=== PATIENT | female | born 1945 | race Caucasian/White ===

== ENCOUNTER → 2019-02-27 14:52 | Outpatient (CLI) | payer MEDICARE, OTHER, SELFPAY ==
--- NOTE | 2019-02-27 14:56 | DI.MG.S_ITS ---
BILATERAL DIGITAL SCREENING MAMMOGRAM 3D/2D WITH CAD: 02/27/2019 CLINICAL: Routine screening. Family history of breast cancer. Comparison is made to exams dated: 02/22/2014 mammogram and 02/16/2014 mammogram - [facility]. There are scattered fibroglandular elements in both breasts. Current study was also evaluated with a Computer Aided Detection (CAD) system. No significant masses, calcifications, or other findings are seen in either breast. There has been no significant interval change. IMPRESSION: NEGATIVE There is no mammographic evidence of malignancy. A 1 year screening mammogram is recommended. This exam was interpreted at Station ID: [id number]. NOTE: For mammograms, a report in lay terms will be sent to the patient. Approximately 15% of breast malignancies will not be visualized mammographically. In the management of a palpable breast mass, a negative mammogram must not discourage biopsy of a clinically suspicious lesion. Electronically Signed By: Lorene mobley/sylvie:02/27/2019 16:53:14 letter sent: Normal Exam ACR BI-RADS Category 1: Negative 3341F
== END ==
PROVIDERS: PCP Physician Assistant; Visit Provider Physician Assistant
DX: Z12.39 Encounter for other screening for malignant neoplasm of breast (principal); Z78.0 Asymptomatic menopausal state; E55.9 Vitamin D deficiency, unspecified
CPT/HCPCS: 77063; 77067; 77080

== ENCOUNTER → 2020-03-05 13:26 | Outpatient (CLI) | payer MEDICARE, OTHER, SELFPAY ==
--- NOTE | 2020-03-05 13:42 | DI.MG.S_ITS ---
Patient Name: CLEVE ALEGRIA date: 1945 Sex: F Attending Physician: Chay Indications: Date: 03/05/2020 13:43 At the request of: LEONARDO ROY Procedure: MM screening mammo BI BILATERAL DIGITAL SCREENING MAMMOGRAM 3D/2D WITH CAD: 03/05/2020 CLINICAL: Routine screening. Family history of breast cancer. Comparison is made to exams dated: 02/27/2019 mammogram, 02/22/2014 mammogram, and 02/16/2014 mammogram - [facility]. There are scattered fibroglandular elements in both breasts. Current study was also evaluated with a Computer Aided Detection (CAD) system. No significant masses, calcifications, or other findings are seen in either breast. There has been no significant interval change. IMPRESSION: NEGATIVE There is no mammographic evidence of malignancy. A 1 year screening mammogram is recommended. This exam was interpreted at Station ID: [id number]. NOTE: For mammograms, a report in lay terms will be sent to the patient. Approximately 15% of breast malignancies will not be visualized mammographically. In the management of a palpable breast mass, a negative mammogram must not discourage biopsy of a clinically suspicious lesion. Electronically Signed By: Bobby pierre/sylvie:03/07/2020 09:15:14 letter sent: Normal Exam ACR BI-RADS Category 1: Negative 3341F
== END ==
PROVIDERS: PCP Registered Nurse Diabetes Educator; Referring Provider Registered Nurse Diabetes Educator; Visit Provider Registered Nurse Diabetes Educator
DX: Z12.31 Encounter for screening mammogram for malignant neoplasm of breast (principal); Z80.3 Family history of malignant neoplasm of breast
CPT/HCPCS: 77063; 77067

== ENCOUNTER → 2020-04-07 15:55 | Outpatient (CLI) | payer MEDICARE, OTHER, SELFPAY ==
[2020-04-07 16:31] LABS: Add Manual Diff / Slide Review NO; Basophils Absolute Auto 0 /uL (0-100); Basophils Percent Auto 0.3 % (0-2); Eosinophils Absolute Auto 200 /uL (0-450); Eosinophils Percent Auto 1.4 % (2-4); Hematocrit 37.8 % (36-46); Hemoglobin 12.5 g/dL (12.0-16.0); Lymphocytes Absolute Auto 1500 /uL (1100-4500); Lymphocytes Percent Auto 11.7 % (25-40); Mean Corpuscular Hemoglobin 28.5 PG (26-34); Mean Corpuscular Volume 86.4 fL (80-100); Monocytes Absolute Auto 900 /uL (0-900); Monocytes Percent Auto 7.4 % (3-14); Neutrophils Absolute Auto 10000 /uL (1500-7000); Neutrophils Percent Auto 79.2 % (50-75); Platelet Count 228 X10^3/uL (150-400); Red Blood Cell Count 4.38 X10^6/uL (4.0-5.2); Red Cell Distribution Width 13.2 % (11.6-14.8); White Blood Cell Count 12.7 X10^3/uL (4.5-11.0)
[2020-04-07 17:33] LABS: Alanine Aminotransferase 36 IU/L (<35); Albumin 4.2 g/dL (3.5-5.0); Albumin Globulin Ratio 1.3 (1.0-2.8); Alkaline Phosphatase 106 U/L (38-126); Aspartate Aminotransferase 27 IU/L (14-36); BUN Creatinine Ratio 21.6 (6-22); Bilirubin Total 0.4 mg/dL (0.2-1.3); Blood Urea Nitrogen 21 mg/dL (7-17); Calcium 9.4 mg/dL (8.4-10.2); Carbon Dioxide 30 mmol/L (22-32); Chloride 102 mmol/L (98-107); Estimated Glomerular Filt Rate 55.8 mL/min (>60); Globulin 3.3 g/dL (1.7-4.1); Glucose 101 mg/dL (80-110); HEMOLYSIS < 15 (0-50); Potassium 3.9 mmol/L (3.4-5.1); Sodium 138 mmol/L (137-145); Total Protein 7.5 g/dL (6.3-8.2)
[2020-04-07 17:45] LABS: Erythrocyte Sedimentation Rate 73 MM/HR (0-20)
[2020-04-07 18:02] LABS: Thyroid Stimulating Hormone 1.77 uIU/mL (0.47-4.68)
== END ==
PROVIDERS: Nurse Practitioner Family; PCP Registered Nurse Diabetes Educator; Referring Provider Registered Nurse Diabetes Educator; Visit Provider Registered Nurse Diabetes Educator
DX: K57.90 Diverticulosis of intestine, part unspecified, without perforation or abscess without bleeding (principal); R10.2 Pelvic and perineal pain; R10.9 Unspecified abdominal pain; Z87.19 Personal history of other diseases of the digestive system; E03.9 Hypothyroidism, unspecified
CPT/HCPCS: 36415; 80053; 84443; 85025; 85651; 86140

== ENCOUNTER → 2020-04-08 08:41 | Outpatient (CLI) | payer MEDICARE, OTHER, SELFPAY ==
--- NOTE | 2020-04-08 08:52 | DI.CT.S_ITS ---
PROCEDURE: CT ABDOMEN PELVIS W CON INDICATIONS: abd/pelvic pain TECHNIQUE: After the administration of intravenous contrast, 5 mm thick sections acquired from the diaphragm to the symphysis. 5 mm coronal and sagittal reformats were acquired. For radiation dose reduction, the following was used: automated exposure control, adjustment of mA and/or kV according to patient size. COMPARISON: None. FINDINGS: Image quality: Excellent. ABDOMEN: Lung bases: Lung bases are clear. Heart size is normal. There is a small hiatal hernia. There is concentric thickening in the distal esophagus at the gastroesophageal junction. Solid organs: There are several low-density nodules in the liver, most likely hepatic cysts. Liver is normal in size and enhancement. Gallbladder is normal. Biliary system is non dilated. Pancreas enhances normally. Spleen is normal in size and enhancement. No adrenal nodules. Kidneys demonstrate normal size and enhancement. There is moderate left hydronephrosis. A 5 mm obstructing stone is seen in the proximal left ureter. A 7 mm fat containing nodule in the right renal cortex is consistent with a angiomyolipoma. Peritoneum and bowel: There are innumerable colonic diverticula. There is focal thickening and stranding in sigmoid colon consistent with acute diverticulitis. A small amount of free fluid is present. No free air. Nodes and vessels: No retroperitoneal or mesenteric adenopathy by size criteria. Aorta and inferior vena cava are normal in size. Miscellaneous: There is a small fat containing umbilical hernia. PELVIS: Genitourinary: Bladder wall appears thickened. Miscellaneous: No inguinal hernias or adenopathy. Bones: No suspicious bony lesions. No vertebral body compression fractures. IMPRESSION: 1. Extensive colonic diverticulosis. There is short segmental thickening and stranding involving the sigmoid colon consistent with acute diverticulitis. A follow-up CT or endoscopic exam is suggested after adequate treatment because colon cancer could have a similar imaging appearance. 2. Moderate left hydronephrosis secondary to a 5 mm obstructing stone in the proximal left ureter. 3. Small hiatal hernia. There is mild concentric thickening of the distal esophagus. Routine esophagram or upper endoscopy is suggested for follow-up. 4. There is a small amount of free fluid. No free air. 5. 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 6. Bladder wall appears thickened. Recommend clinical correlation for cystitis. Dictated by: Ramu Merchant M.D. on 04/08/2020 at 10:39 Approved by: Ramu Merchant M.D. on 04/08/2020 at 10:50
[2020-04-08 16:50] LABS: Appearance Urine UA CLEAR; Bilirubin Urine UA NEGATIVE (NEGATIVE); Color Urine UA YELLOW; Glucose Urine UA NEGATIVE (Negative); Ketones Urine UA NEGATIVE (NEGATIVE); Leukocyte Esterase Urine UA 1+ (NEGATIVE); Nitrite Urine UA NEGATIVE (Negative); Occult Blood Urine UA NEGATIVE (Negative); Protein Urine UA NEGATIVE (Negative); Specific Gravity Urine UA <=1.005 (1.000-1.035); Urobilinogen Urine UA 0.2 E.U./dL (0.2)
[2020-04-08 17:04] LABS: RBC Urine 0-1/HPF (0-5/HPF); WBC Urine 5-10/HPF (0-5/HPF)
[2020-04-08 17:05] LABS: Bacteria Urine Few (2-10); Culture Indicated Urine Specimen Cultured
== END ==
PROVIDERS: PCP Registered Nurse Diabetes Educator; Referring Provider Nurse Practitioner Family; Visit Provider Nurse Practitioner Family
DX: R10.2 Pelvic and perineal pain (principal); R10.9 Unspecified abdominal pain; K57.90 Diverticulosis of intestine, part unspecified, without perforation or abscess without bleeding; R39.9 Unspecified symptoms and signs involving the genitourinary system; K44.9 Diaphragmatic hernia without obstruction or gangrene; N13.2 Hydronephrosis with renal and ureteral calculous obstruction; D17.71 Benign lipomatous neoplasm of kidney; Z87.19 Personal history of other diseases of the digestive system
CPT/HCPCS: 74177; 81001; 87086; Q9967

== ENCOUNTER 2020-04-13 10:20 | Emergency (ER) | payer MEDICARE, OTHER, SELFPAY ==
[2020-04-13] VITALS (8 sets, daily range): BP systolic 138–175; BP diastolic 60–79; PULSE 66–94; RESP 18; TEMP 36.8; O2SAT 92–99; BMI 27.6
[2020-04-13 10:43] LABS: Add Manual Diff / Slide Review NO; Basophils Absolute Auto 100 /uL (0-100); Basophils Percent Auto 0.7 % (0-2); Eosinophils Absolute Auto 100 /uL (0-450); Eosinophils Percent Auto 1.8 % (2-4); Hemoglobin 13.2 g/dL (12.0-16.0); Lymphocytes Absolute Auto 1100 /uL (1100-4500); Lymphocytes Percent Auto 14.7 % (25-40); Mean Corpuscular HGB Conc 33.7 % (30-36); Mean Corpuscular Volume 85.9 fL (80-100); Monocytes Absolute Auto 500 /uL (0-900); Neutrophils Absolute Auto 5900 /uL (1500-7000); Neutrophils Percent Auto 75.8 % (50-75); Platelet Count 246 X10^3/uL (150-400); Red Blood Cell Count 4.54 X10^6/uL (4.0-5.2); Red Cell Distribution Width 13.5 % (11.6-14.8); White Blood Cell Count 7.8 X10^3/uL (4.5-11.0)
[2020-04-13 10:54] LABS: BUN Creatinine Ratio 12.1 (6-22); Blood Urea Nitrogen 13 mg/dL (7-17); Calcium 9.3 mg/dL (8.4-10.2); Carbon Dioxide 26 mmol/L (22-32); Chloride 104 mmol/L (98-107); Estimated Glomerular Filt Rate 49.9 mL/min (>60); Glucose 92 mg/dL (80-110); HEMOLYSIS < 15 (0-50); Potassium 3.7 mmol/L (3.4-5.1); Sodium 139 mmol/L (137-145)
--- NOTE | 2020-04-13 11:00 | ED.GIBLEED ---
HPI - GI Bleed General Chief complaint: GI Bleed Stated complaint: left sided kidney stone/diverticulosis x7 days Time Seen by Provider: 04/13/20 10:31 Source: patient Mode of arrival: Ambulatory Limitations: no limitations History of Present Illness HPI Narrative: Patient is a 74-year-old female. Several days ago was seen by her primary doctor for left-sided discomfort. Had a CT scan performed which showed a left-sided ureteral stone and also sigmoid diverticulitis. She was placed on Cipro and Flagyl. She has had kidney stones in the past. She states that the pain that she was in several days ago has resolved however this morning she had bright red blood per rectum and also passage of clots. No urinary symptoms. No fevers. Was told to come into the emergency department by her primary provider. Related Data Home Medications Medication Instructions Recorded Confirmed OMEPRAZOLE 20 mg PO PRN #30 07/11/12 04/12/20 Previous Rx's Medication Instructions Recorded sertraline 100 mg tablet 100 mg PO Q DAY #90 tab 02/16/20 ergocalciferol (vitamin D2) 1,250 1,250 mcg PO QWEEK #12 cap 02/28/20 mcg (50,000 unit) capsule levothyroxine 88 mcg tablet 88 mcg PO DAILY #90 tab 02/28/20 pravastatin 10 mg tablet 10 mg PO BEDTIME #90 tab 03/23/20 ciprofloxacin HCl 500 mg tablet 500 mg PO BID #20 tab 04/08/20 tamsulosin 0.4 mg capsule 0.4 mg PO DAILY #60 cap 04/08/20 metronidazole 500 mg tablet 500 mg PO Q8H #15 tab 04/13/20 Allergies Allergy/AdvReac Type Severity Reaction Status Date / Time No Known Drug Allergies Allergy Verified 04/12/20 14:43 Review of Systems Constitutional Constitutional: Denies fever(s) Cardiovascular Cardiovascular: Denies chest pain and Denies dyspnea Respiratory Respiratory: Denies dyspnea Gastrointestinal Gastrointestinal: Denies abdominal pain, Denies melena, Reports hematochezia, Reports nausea and Denies vomiting Genitourinary Genitourinary: Denies dysuria Genitourinary: Denies dysuria Musculoskeletal Musculoskeletal: Denies arthralgias and Denies myalgias Integumentary/Breasts Skin/Breast: Denies rash Neurologic Neurologic: Denies behavioral changes Psychiatric Psychiatric: Denies behavioral changes Hematologic/Lymphatic Hematologic/Lymphatic: Denies easy bleeding and Denies easy bruising Allergic/Immunologic Allergic/Immunologic: Denies urticaria Patient History Medical History Abdominal pain (Acute) Diverticulitis (Acute 04/07/20) Diverticulosis (Acute) History of ulcerative colitis (Acute) Hypothyroidism (Acute) Kidney stone on left side (Acute 04/2020) Pelvic pain (Acute) Social History Smoking Status: Former smoker Tobacco: How many years used: 15 second hand exposure: No alcohol intake: current substance use type: does not use Smoking Status: Former smoker alcohol intake frequency: holidays/special occasions only Substance Use Type: does not use Exam Initial Vital Signs Initial Vital Signs: Vital Signs Pulse Rate 91 H 04/13/20 10:26 Const General: cooperative and comfortable Limitations: mental status not altered HENMT Head: normal to inspection and normocephalic Resp Effort & Inspection: normal respiratory effort Auscultation: clear to auscultation bilaterally Cardio Rate: regular rate Rhythm: regular rhythm GI Inspection: non-distended Palpation: soft, No firm and No tender Back/Spine/Pelvis Back: No CVA tenderness Skin Lesions: no lesions Rashes: no rashes Neuro General: patient alert, patient awake and patient oriented x3 Extrem General: capillary refill normal Psych Appearance: grossly normal and well kempt Course Orders Ordered: ED Orders 04/13/20 10:30 Basic Metabolic Panel Stat Complete Blood Count AUTO DIFF Stat 04/13/20 11:30 Urine Culture Stat Urine Microscopic Stat Vital Signs Vital signs: Vital Signs - 8 hr 04/13/20 10:26 04/13/20 10:27 04/13/20 10:30 Temperature 98.3 F Pulse Rate 91 H 92 H 71 Respiratory Rate 18 Blood Pressure 175/79 H 165/67 H Pulse Oximetry 99 99 04/13/20 11:00 04/13/20 11:30 04/13/20 11:31 Temperature Pulse Rate 70 94 H 74 Respiratory Rate Blood Pressure 145/65 H 138/60 Pulse Oximetry 97 92 96 04/13/20 12:00 04/13/20 12:30 Temperature Pulse Rate 66 74 Respiratory Rate Blood Pressure 152/65 H 149/65 H Pulse Oximetry 98 96 MDM - GI Bleed Medical Records Attestation: I reviewed the patient's medical records. Lab Data Attestation: I reviewed the patient's lab results. Result diagrams: 04/13/20 10:30 04/13/20 10:30 Labs: Lab Results 04/13/20 04/13/20 04/13/20 Range/Units 10:30 10:30 11:30 WBC 7.8 (4.5-11.0) X10^3/uL RBC 4.54 (4.0-5.2) X10^6/uL Hgb 13.2 (12.0-16.0) g/dL Hct 39.0 (36-46) % MCV 85.9 (80-100) fL MCH 29.0 (26-34) PG MCHC 33.7 (30-36) % RDW 13.5 (11.6-14.8) % Plt Count 246 (150-400) X10^3/uL Neut % (Auto) 75.8 H (50-75) % Lymph % (Auto) 14.7 L (25-40) % [place] % (Auto) 7.0 (3-14) % Eos % (Auto) 1.8 L (2-4) % Baso % (Auto) 0.7 (0-2) % Neut # (Auto) 5900 (4229-1600) /uL Lymph # (Auto) 1100 (9816-1904) /uL [place] # (Auto) 500 (0-900) /uL Eos # (Auto) 100 (0-450) /uL Baso # (Auto) 100 (0-100) /uL Sodium 139 (137-145) mmol/L Potassium 3.7 (3.4-5.1) mmol/L Chloride 104 (98-107) mmol/L Carbon Dioxide 26 (22-32) mmol/L BUN 13 (7-17) mg/dL Creatinine 1.07 H (0.52-1.04) mg/dL Estimated GFR 49.9 L (>60) mL/min BUN/Creatinine Ratio 12.1 (6-22) Glucose 92 (80-110) mg/dL Calcium 9.3 (8.4-10.2) mg/dL Urine RBC 0-1/hpf (0-5/HPF) Urine WBC 10-30/hpf H (0-5/HPF) Ur Squamous Epith Cells 1-5 /hpf (0-5/HPF) Calcium Oxalate Crystal Occasional H Urine Bacteria Many (>30) H (None) Hyaline Casts 5-10/lpf (None) Ur Culture Indicated? Specimen cultured Urine Dip Bedside Urine Glucose Negative Bedside Urine Bilirubin - Negative Bedside Urine Ketone +/- 5 Urine Specific [place] 1.030 Bedside Urine Occult Blood - Negative Bedside Urine pH 5.5 Bedside Urine Protein +/- 15 Bedside Urine Urobilinogen - Negative Bedside Urine Nitrite - Negative Bedside Urine Leukocytes +/- 15 Esterase MDM Narrative Medical decision making narrative: Reviewed patient's CT scan from a couple days ago. She does have a proximal left-sided nephrolithiasis and also diverticulitis. She is currently on Cipro and Flagyl. She is tolerating this well. Her symptoms have resolved. She is not having any urinary symptoms. Her creatinine does have a slight increase however I do not have a comparison of this. Certainly not in renal failure or non emergent dialysis. Her urinalysis is somewhat concerning about a urinary tract infection which she is on Cipro in the should treat this. Patient has already had a discussion with her primary doctor about having a colonoscopy once her symptoms ever approved. I feel that we can hold on a repeat CT scan today. I feel we can hold on urologic consultation and surgical consultation. She was given strict return precautions and follow-up instructions. She expressed understanding and agreement. Discharge Plan Departure Patient Disposition: Home Clinical Impression: Diverticulitis, Kidney stone on left side, Rectal bleeding Discharge Date/Time: 04/13/20 12:54 Instructions: Diverticulitis Activity Restrictions/Additional Instructions: Continue all of your medications as directed. Contact your primary provider for follow-up. It is important that you follow-up after the resolution of your symptoms to have a colonoscopy. Return to the emergency department for any new or worsening symptoms Prescriptions: No Action OMEPRAZOLE 20 mg PO PRN Qty: 30 RF: 2 levothyroxine 88 mcg tablet 88 mcg PO DAILY Qty: 90 RF: 3 ergocalciferol (vitamin D2) 1,250 mcg (50,000 unit) capsule 1,250 mcg PO QWEEK Qty: 12 RF: 0 ciprofloxacin HCl 500 mg tablet 500 mg PO BID Qty: 20 RF: 0 tamsulosin [Flomax] 0.4 mg capsule 0.4 mg PO DAILY Qty: 60 RF: 0 pravastatin 10 mg tablet 10 mg PO BEDTIME Qty: 90 RF: 3 metronidazole 500 mg tablet 500 mg PO Q8H Qty: 15 RF: 0 sertraline [Zoloft] 100 mg tablet 100 mg PO Q DAY Qty: 90 RF: 3 Referrals: Raúl Cartwright ARNP [Primary Care Provider] -
--- NOTE | 2020-04-13 11:23 | PC.NURSE ---
Patient started on abx and medications for kidney stone on saturday. Patient dx with diverticulitis and kidney stone. Noticed some red stool saturday night attributed it to red jello continued to have loose stools and blood clots with BM. Patient reports some nausea, no vomiting. Has been on a clear liquid diet. Denies chest pain or SOB.
[2020-04-13 12:25] LABS: Bacteria Urine Many (>30); Hyaline Casts Urine 5-10/LPF; RBC Urine 0-1/HPF (0-5/HPF); Squamous Epithelial Cell Urine 1-5 /HPF (0-5/HPF); WBC Urine 10-30/HPF (0-5/HPF)
[2020-04-13 12:26] LABS: Calcium Oxalate Crystals Urine Occasional; Culture Indicated Urine Specimen Cultured
== END 2020-04-13 12:54 | disposition home or self-care (01) ==
PROVIDERS: Emergency Provider Emergency Medicine; PCP Registered Nurse Diabetes Educator
DX: K57.92 Diverticulitis of intestine, part unspecified, without perforation or abscess without bleeding (principal); N20.0 Calculus of kidney; K62.5 Hemorrhage of anus and rectum; R11.0 Nausea
CPT/HCPCS: 36415; 80048; 81003; 81015; 85025; 87086; 99283

== ENCOUNTER → 2020-04-25 11:33 | Outpatient (CLI) | payer MEDICARE, OTHER, SELFPAY ==
--- NOTE | 2020-04-25 11:37 | DI.RAD.S_ITS ---
PROCEDURE: XR KUB INDICATIONS: kidney stones TECHNIQUE: One view of the abdomen acquired. COMPARISON: None. FINDINGS: Surgical changes and devices: None. Bowel: There is increased stool throughout the abdomen consistent with constipation. No free air, pneumatosis, or portal venous gas. No calcifications are seen along the course of the kidneys or ureters. No pelvic phleboliths. Soft tissues: No suspicious abdominal calcifications. Visualized solid organ contours appear normal in size. Bones: No suspicious bony lesions. IMPRESSION: No acute plain film abnormality. No evidence of nephroureterolithiasis. Dictated by: Hemant Stone M.D. on 04/25/2020 at 12:52 Approved by: Hemant Stone M.D. on 04/25/2020 at 12:54
== END ==
PROVIDERS: PCP Registered Nurse Diabetes Educator; Referring Provider Specialist; Visit Provider Specialist
DX: N20.0 Calculus of kidney (principal)
CPT/HCPCS: 74018

== ENCOUNTER → 2020-05-10 10:54 | Outpatient (CLI) | payer MEDICARE, OTHER, SELFPAY ==
--- NOTE | 2020-05-10 11:03 | DI.CT.S_ITS ---
PROCEDURE: CT KIDNEY URETER BLADDER (KUB) INDICATIONS: ureteral calculus TECHNIQUE: Noncontrast 5 mm thick sections acquired from the diaphragms to the symphysis. 5 mm thick coronal and sagittal reformats were then performed. For radiation dose reduction, the following was used: automated exposure control, adjustment of mA and/or kV according to patient size. COMPARISON: [facility], CT, CT ABDOMEN PELVIS W CON, 04/08/2020, 9:55. FINDINGS: Image quality: Excellent. Lung bases: Visualized lung bases demonstrate mild bibasilar dependent atelectasis. Heart size is normal. Small hiatal hernia. Urinary system: Both kidneys are normal in size. No kidney stones. No hydronephrosis or perinephric fat stranding. Redemonstration of fat attenuation focus involving the right renal cortex consistent with an angiomyolipoma. Right ureter appears non-dilated throughout its expected course. Bladder wall thickness is normal; no calcified bladder stones. No nephroliths. There is a 5 mm proximal left ureteral stone with associated mild left hydronephrosis. This ureteral stone has not changed significantly in location. Remainder of the visualized left ureter is normal in course and caliber. Other solid organs: Liver is normal in size. Redemonstration of scattered hepatic hypodensities likely representing cysts versus hemangiomas. Gallbladder is unremarkable . Pancreas is normal in contours. Spleen is normal in size. No adrenal nodules. Peritoneum and bowel: Extensive scattered colonic diverticulosis with interval resolution of previously seen Karishma diverticular inflammation. Unenhanced bowel loops demonstrate normal wall thickness and caliber. No free fluid or air. Nodes and vessels: No retroperitoneal or mesenteric adenopathy by size criteria. Aorta and inferior vena cava are normal in caliber. Scattered atherosclerotic calcifications of the abdominal aorta and iliac vessels without aneurysmal dilatation. Abdominal wall: No ventral hernias. Pelvis: No free pelvic fluid. No inguinal hernias or adenopathy. Bones: No suspicious bony lesions. No acute vertebral body compression fractures. IMPRESSION: 1. Unchanged size and appearance as well as location of 5 mm proximal left ureteral stone with minimal left hydroureteronephrosis. 2. Extensive colonic diverticulosis with interval resolution of sigmoid colon diverticulitis. 3. Small hiatal hernia. 4. Stable 7 mm angiomyolipoma of the right kidney. Dictated by: Shahzad Chaudhry M.D. on 05/10/2020 at 16:01 Approved by: Shahzad Chaudhry M.D. on 05/10/2020 at 16:15
== END ==
PROVIDERS: PCP Registered Nurse Diabetes Educator; Referring Provider Registered Nurse Diabetes Educator; Visit Provider Specialist
DX: N20.1 Calculus of ureter (principal); K57.90 Diverticulosis of intestine, part unspecified, without perforation or abscess without bleeding; K44.9 Diaphragmatic hernia without obstruction or gangrene; D17.71 Benign lipomatous neoplasm of kidney
CPT/HCPCS: 74176

== ENCOUNTER → 2020-05-19 13:54 | Outpatient (CLI) | payer MEDICARE, OTHER, SELFPAY | PROVIDERS: PCP Registered Nurse Diabetes Educator; Visit Provider Specialist | DX: N39.0 Urinary tract infection, site not specified (principal); N20.1 Calculus of ureter | CPT/HCPCS: 81002; 87086; 99214 ==

== ENCOUNTER → 2020-05-23 08:58 | Outpatient (CLI) | payer MEDICARE, OTHER, SELFPAY ==
[2020-05-23 10:41] LABS: Blood Urea Nitrogen 22 mg/dL (7-17); Calcium 9.3 mg/dL (8.4-10.2); Carbon Dioxide 30 mmol/L (22-32); Chloride 105 mmol/L (98-107); Cholesterol 224 mg/dL (140-199); Estimated Glomerular Filt Rate > 60.0 mL/min (>60); Glucose 98 mg/dL (80-110); HDL Cholesterol 55 mg/dL (40-60); HEMOLYSIS < 15 (0-50); LDL Cholesterol Calculated 142 mg/dL (<100); Potassium 4.6 mmol/L (3.4-5.1); Sodium 139 mmol/L (137-145); Triglycerides 137 mg/dL (35-150)
[2020-05-23 10:53] LABS: Vitamin D 25 Hydroxy (D3) 42.6 ng/mL (30.0-100.0)
== END ==
PROVIDERS: PCP Registered Nurse Diabetes Educator; Referring Provider Registered Nurse Diabetes Educator; Visit Provider Registered Nurse Diabetes Educator
DX: E55.9 Vitamin D deficiency, unspecified (principal); E78.00 Pure hypercholesterolemia, unspecified; R94.4 Abnormal results of kidney function studies
CPT/HCPCS: 36415; 80048; 80061; 82306

== ENCOUNTER → 2020-05-25 14:52 | Outpatient (CLI) | payer MEDICARE, OTHER, SELFPAY ==
[2020-05-25 16:11] LABS: COVID19 -Nasal RAPID Negative (Negative)
== END ==
PROVIDERS: PCP Registered Nurse Diabetes Educator; Visit Provider Specialist
DX: Z11.59 Encounter for screening for other viral diseases (principal)
CPT/HCPCS: 87635

== ENCOUNTER 2020-05-27 08:12 | Day surgery (SDC) | payer MEDICARE, OTHER, SELFPAY ==
[2020-05-24 08:09] VITALS: BMI 27.1
[2020-05-27] VITALS (9 sets, daily range): BP systolic 126–148; BP diastolic 38–78; PULSE 61–80; RESP 12–18; TEMP 36.4–37; O2SAT 87–99; BMI 27.2
--- NOTE | 2020-05-27 | DI.RAD.S_ITS ---
PROCEDURE: XR ABDOMEN 1V INDICATIONS: LEFT STENT PLACEMENT TECHNIQUE: One view of the abdomen acquired. COMPARISON: None. FINDINGS: Proximal portion of left ureteral stent noted. Left ureteral stent projects over the expected region of the left renal pelvis. IMPRESSION: Status post placement of left ureteral stent. Dictated by: Leonor Morgan MD, PhD on 05/27/2020 at 14:09 Approved by: Leonor Morgan MD, PhD on 05/27/2020 at 14:10
--- NOTE | 2020-05-27 | DI.RAD.S_ITS ---
PROCEDURE: XR KUB INDICATIONS: Left ureteral calculus TECHNIQUE: One view of the abdomen acquired. COMPARISON: [facility], , XR KUB, 04/25/2020, 11:36. FINDINGS: Surgical changes and devices: None. Bowel: Bowel gas pattern is normal. Soft tissues: No suspicious abdominal calcifications. Visualized solid organ contours appear normal in size. Bones: Discogenic changes and facet arthropathy IMPRESSION: No radiographically visible urolithiasis identified. Dictated by: Delvis Bullock M.D. on 05/27/2020 at 11:09 Approved by: Delvis Bullock M.D. on 05/27/2020 at 11:16
[2020-05-27] MEDS: LACTATED RINGERS 1,000 ML 42 ML IV (08:56)
--- NOTE | 2020-05-27 09:00 | PM.PREOP ---
Pre-operative Note Interval Note History & Physical reviewed/Exam performed by Physician: Yes Changes to H&P: No
--- NOTE | 2020-05-27 09:11 | SUR.OPER ---
Lithotomy on padded OR bed, head on pillow, arms secured on padded arm boards at <90 degrees abduction. Legs secured in padded yellow fins stirrups.
[2020-05-27] MEDS: CEFAZOLIN 2 GM/100 ML FROZ.PIGGY IV (09:47)
[2020-05-27] MEDS: IOPAMIDOL 15 ML VIAL INJ (10:27)
[2020-05-27] MEDS: BELLADONNA/OPIUM SUPPOSITORIES 1 EACH PR (10:46)
--- NOTE | 2020-05-27 10:59 | P.OP_ITS ---
Operative Date/Time/Diagnoses Date of procedure: 05/27/20 Time of procedure: 10:59 Pre-op diagnosis: 1. 5 mm left proximal ureteral calculus Post-op diagnosis: other (Exhaustive with endoscopic evaluation failed to locate a stone.) Procedure & Clinicians Procedure: 1. Cystoscopy and left ureteroscopy 2. Cystoscopy and left retrograde pyelogram Same procedure as scheduled: No (No stone located identified so therefore no laser) Indications: 1. 5 mm calculus left proximal ureterKevwitch Surgeon: Sharlene Asher Click Yes if Unassisted: Yes Anesthesia Type: General Operative Notes Findings: 1. Urethral-normal 2. Bladder-normal ureteral orifices bilaterally. Normal urothelium throughout. 3. Left ureter-no evidence of the index calculus. 4. Left kidney-the collecting system was exhaustively evaluated with repeated pyelography and endoscopic evaluation of the intrarenal collecting system. No stone located are identified. Closure Type: not applicable Specimen(s): none sent Applied: other (Six [place]onese by 22-32 cm multi-length.) Estimated Blood Loss (mL): 0 Blood products transfused: none Tourniquet time (min): 0 Procedure in detail: Patient was positioned in supine was administered general anesthesia. She was then repositioned semi lithotomy and the lower abdomen, perineum, and genitalia prepped and draped in sterile fashion. Twenty-two Gabonese panendoscope the past lower urinary tract with findings as described above. A hybrid 0.35 guidewire was then advanced into the left collecting system under direct and fluoroscopic guidance. The panendoscope was backloaded off the guidewire. A dual-lumen access sheath was then advanced over this wire under fluoroscopic guidance. A 2nd 0.35 hybrid guidewire was then advanced through the accessory channel of the dual-lumen ureteral access sheath. The ureteral access sheath was then backloaded off the both wires. Next, the semi rigid ureteral scope was advanced into the bladder and then into the left distal ureter careful examination was undertaken from UVJ to UPJ without evidence of a calculus for urothelial evidence of a recent calculus. The semi rigid scope was then removed. A flexible ureteral scope was then advanced over the accessory wire under fluoroscopic guidance. That wire was then removed. Retrograde pyelogram was then performed. Total of 3 injections of contrast were utilized during examination of the intrarenal collecting system, which was completed systematically 3 times. No stone was identified. A flexible ureteral scope was then removed. The panendoscope was then front loaded on accessory guidewire. A 6 [place] by 22-32 cm multi-length stent was then advanced over the guidewire under direct and fluoroscopic guidance. A RETRIEVAL LINE WAS LEFT ATTACHED. The bladder was drained completely and all instrumentation was removed. The patient was then repositioned supine, was awakened, and transferred to a gurney in stable condition. Complications: none Post-operative Condition: stable Disposition: PACU Plan for aftercare: Discharge home
--- NOTE | 2020-05-27 11:37 | DI.CT.S_ITS ---
PROCEDURE: CT KIDNEY URETER BLADDER (KUB) INDICATIONS: Follow-up left ureteral calculus TECHNIQUE: Noncontrast 5 mm thick sections acquired from the diaphragms to the symphysis. 5 mm thick coronal and sagittal reformats were then performed. For radiation dose reduction, the following was used: automated exposure control, adjustment of mA and/or kV according to patient size. COMPARISON: [facility], CT, CT KIDNEY URETER BLADDER (KUB), 05/10/2020, 10:58. [facility], CR, XR KUB, 05/27/2020, 7:19. [facility], CR, XR ABDOMEN 1V, 05/27/2020, 10:43. [facility], CT, CT ABDOMEN PELVIS W CON, 04/08/2020, 9:55. FINDINGS: Image quality: Excellent. Lung bases: Lung bases are clear. Heart size is normal. A small hiatal hernia is incidentally noted. Urinary system: A left-sided ureteral stent is seen. The ends of the stent are seen in the expected locations. There is a mild amount of contrast seen excreting within both renal collecting systems. There is a small amount contrast extravasation seen along the inferior medial aspect of the left kidney. At the inferior pole of the right kidney, there is a focus of fat again seen. Both kidneys are normal in size. No yadira stones are seen within the kidneys. No hydronephrosis. Both ureters appear non-dilated throughout their expected courses. The previously seen left ureteral stone is no longer seen. Bladder wall thickness is normal. The previously seen left ureteral stone is likely now within the bladder. Other solid organs: Liver is normal in size. Simple appearing liver cysts are seen. Gallbladder wall is not thickened. Pancreas is normal in contours. Spleen is normal in size. No adrenal nodules. Peritoneum and bowel: Diffuse prominent diverticulosis is seen throughout the colon. No yadira findings of active diverticulitis can be seen. Unenhanced bowel loops demonstrate normal wall thickness and caliber. No free fluid or air. Nodes and vessels: No retroperitoneal or mesenteric adenopathy by size criteria. Aorta and inferior vena cava are normal in caliber. Atherosclerotic calcification is noted. Abdominal wall: A mild periumbilical hernia is seen, containing fat. Pelvis: No free pelvic fluid. No inguinal hernias or adenopathy. This patient is status post hysterectomy. No adnexal masses are seen. Bones: No suspicious bony lesions. No vertebral body compression fractures. IMPRESSION: There is a left-sided double-J stent seen in the expected location. There is a small amount of extraluminal contrast seen adjacent to the left kidney, which is attributed to a collecting system perforation. Please consider short-term follow-up. The previously seen left ureteral stone is now likely within the bladder. Incidental note is made of: Small hiatal hernia Liver cysts Right kidney angiomyolipoma. Fat containing periumbilical hernia Diffuse colonic diverticulosis Hysterectomy Dictated by: Deven Barahona M.D. on 05/27/2020 at 10:45 Approved by: Deven Barahona M.D. on 05/27/2020 at 10:52
--- NOTE | 2020-05-27 12:01 | SUR.PHASEII ---
Assumed care from Raquel, called, pt denies pain, back from CAT scan, call light with in reach.
--- NOTE | 2020-05-27 12:37 | SUR.PHASEII ---
brought in, Dr. kim made aware, spoke with pt, CAT scan results reviewed, both pt and voiced an understanding.
[2020-05-27] MEDS: OXYCODONE IR 5 MG TABLET PO (13:51)
[2020-05-27] MEDS: ACETAMINOPHEN 325 MG TABLET 650 MG PO (13:53)
--- NOTE | 2020-05-27 15:12 | SUR.PHASEII ---
Up to BR x 2 urine strained each time, no stones found. Pt medicated with tylenol and percolone. Pt dressed when ready and left when ready and left in stable condition.
== END 2020-05-27 14:15 | disposition home or self-care (01) ==
PROVIDERS: PCP Registered Nurse Diabetes Educator; Referring Provider Specialist; Visit Provider Specialist
PROC: (CPT 52332; principal; 2020-05-27 09:45)
DX: N20.1 Calculus of ureter (principal)
CPT/HCPCS: 52332; 74018; 74176; 76000; J0690; J1100; J2405; J2704; J3010

== ENCOUNTER → 2020-08-04 13:14 | Outpatient (CLI) | payer MEDICARE, OTHER, SELFPAY ==
--- NOTE | 2020-08-04 13:16 | DI.RAD.S_ITS ---
PROCEDURE: XR KUB INDICATIONS: kidney stones TECHNIQUE: One view of the abdomen acquired. COMPARISON: [facility], CR, XR KUB, 04/25/2020, 11:36. [facility], CT, CT KIDNEY URETER BLADDER (KUB), 05/10/2020, 10:58. [facility], CR, XR ABDOMEN 1V, 05/27/2020, 10:43. [facility], CT, CT KIDNEY URETER BLADDER (KUB), 05/27/2020, 11:26. [facility], CR, XR KUB, 05/27/2020, 7:19. FINDINGS: Surgical changes and devices: None. Bowel: No specific transition point. There is moderate stool. Soft tissues: 2-3 mm high density focus is present projecting over the L5 left transverse process, which could reflect ureteral calculus although technically indeterminate. Elsewhere, no radiographically visible urolithiasis. Bones: Lumbar spondylosis and facet arthropathy. Mild bilateral hip joint degeneration. IMPRESSION: Left-sided abdominal calcification at the level of L5, technically indeterminate and could be further assessed with CT KUB as clinically warranted. Dictated by: Delvis Bullock M.D. on 08/04/2020 at 16:20 Approved by: Delvis Bullock M.D. on 08/04/2020 at 16:24
[2020-08-04 16:40] LABS: Uric Acid 5.9 mg/dL (2.5-6.2)
[2020-08-05 07:22] LABS: Parathyroid Hormone Int 40 pg/mL (15-65)
== END ==
PROVIDERS: PCP Registered Nurse Diabetes Educator; Referring Provider Specialist; Visit Provider Specialist
DX: N20.0 Calculus of kidney (principal)
CPT/HCPCS: 36415; 74018; 82310; 83970; 84550

== ENCOUNTER → 2021-04-07 15:03 | Outpatient (CLI) | payer MEDICARE, OTHER, SELFPAY ==
--- NOTE | 2021-04-07 | DI.MG.S_ITS ---
BILATERAL DIGITAL SCREENING MAMMOGRAM 3D/2D WITH CAD: 04/07/2021 CLINICAL: Routine screening. Family history of breast cancer. Comparison is made to exams dated: 03/05/2020 mammogram, 02/27/2019 mammogram, and 02/22/2014 mammogram - [facility]. There are scattered fibroglandular elements in both breasts. Current study was also evaluated with a Computer Aided Detection (CAD) system. No significant masses, calcifications, or other findings are seen in either breast. There has been no significant interval change. IMPRESSION: NEGATIVE There is no mammographic evidence of malignancy. A 1 year screening mammogram is recommended. This exam was interpreted at Station ID: [id number]. NOTE: For mammograms, a report in lay terms will be sent to the patient. Approximately 15% of breast malignancies will not be visualized mammographically. In the management of a palpable breast mass, a negative mammogram must not discourage biopsy of a clinically suspicious lesion. Electronically Signed By: Shahzad howard/sylvie:04/07/2021 17:14:12 letter sent: Normal Exam ACR BI-RADS Category 1: Negative [id number]
== END ==
PROVIDERS: PCP Registered Nurse Diabetes Educator; Referring Provider Registered Nurse Diabetes Educator; Visit Provider Registered Nurse Diabetes Educator
DX: Z12.31 Encounter for screening mammogram for malignant neoplasm of breast (principal); Z80.3 Family history of malignant neoplasm of breast
CPT/HCPCS: 77063; 77067

== ENCOUNTER → 2021-06-07 08:11 | Outpatient (CLI) | payer MEDICARE, OTHER, SELFPAY ==
[2021-06-07 09:43] LABS: Hemoglobin 13.7 g/dL (12.0-16.0); Mean Corpuscular HGB Conc 34.3 % (30-36); Mean Corpuscular Hemoglobin 30.6 PG (26-34); Mean Corpuscular Volume 89.3 fL (80-100); Platelet Count 161 X10^3/uL (150-400); Red Blood Cell Count 4.48 X10^6/uL (4.0-5.2); White Blood Cell Count 5.4 X10^3/uL (4.5-11.0)
[2021-06-07 10:33] LABS: Alanine Aminotransferase 18 IU/L (<35); Albumin 4.3 g/dL (3.5-5.0); Albumin Globulin Ratio 1.5 (1.0-2.8); Alkaline Phosphatase 83 U/L (38-126); Aspartate Aminotransferase 21 IU/L (14-36); BUN Creatinine Ratio 27.2 (6-22); Bilirubin Total 0.5 mg/dL (0.2-1.3); Blood Urea Nitrogen 25 mg/dL (7-17); Calcium 10.1 mg/dL (8.4-10.2); Carbon Dioxide 31 mmol/L (22-32); Chloride 105 mmol/L (98-107); Cholesterol 234 mg/dL (140-199); Globulin 2.8 g/dL (1.7-4.1); Glucose 101 mg/dL (80-110); HDL Cholesterol 61 mg/dL (40-60); HEMOLYSIS < 15 (0-50); LDL Cholesterol Calculated 152 mg/dL (<100); Potassium 5.1 mmol/L (3.4-5.1); Sodium 142 mmol/L (137-145); Total Protein 7.1 g/dL (6.3-8.2); Triglycerides 105 mg/dL (35-150)
[2021-06-07 12:40] LABS: Free T4, Direct Thyroxine 1.68 ng/dL (0.78-2.19)
== END ==
PROVIDERS: PCP Registered Nurse Diabetes Educator; Referring Provider Registered Nurse Diabetes Educator; Visit Provider Registered Nurse Diabetes Educator
DX: E03.9 Hypothyroidism, unspecified (principal); R94.4 Abnormal results of kidney function studies; E78.5 Hyperlipidemia, unspecified
CPT/HCPCS: 36415; 80053; 80061; 84439; 84443; 85027

== ENCOUNTER → 2023-08-21 11:35 | Outpatient (CLI) | payer MEDICARE, OTHER, SELFPAY ==
--- NOTE | 2023-08-21 | DI.MG.S_ITS ---
BILATERAL DIGITAL SCREENING MAMMOGRAM 3D/2D WITH CAD: 08/21/2023 CLINICAL: Routine screening. Family history breast cancer. Comparison is made to exams dated: 04/07/2021 mammogram, 03/05/2020 mammogram, 02/27/2019 mammogram, and 02/22/2014 mammogram - [facility]. There are scattered areas of fibroglandular density in both breasts (category b / 25%-50% glandular tissue). Current study was also evaluated with a Computer Aided Detection (CAD) system. No significant masses, calcifications, or other findings are seen in either breast. There has been no significant interval change. IMPRESSION: NEGATIVE There is no mammographic evidence of malignancy. A 1 year screening mammogram is recommended. Based on the Tyrer Cuzick model (a risk assessment model) the patient's lifetime risk is 4.5% and her 10 year risk is 0.0%. According to the ACR, ACS, and NCCN guidelines, an annual breast MRI exam along with mammogram is recommended if the patient's lifetime risk is 20% or greater. This exam was interpreted at Station ID: [id number]. NOTE: For mammograms, a report in lay terms will be sent to the patient. Approximately 15% of breast malignancies will not be visualized mammographically. In the management of a palpable breast mass, a negative mammogram must not discourage biopsy of a clinically suspicious lesion. Electronically Signed By: Gurwinder thomas/sylvie:08/21/2023 16:12:54 letter sent: Normal Exam ACR BI-RADS Category 1: Negative [id number]
== END ==
PROVIDERS: PCP Registered Nurse Diabetes Educator; Referring Provider Registered Nurse Diabetes Educator; Visit Provider Registered Nurse Diabetes Educator
DX: Z12.31 Encounter for screening mammogram for malignant neoplasm of breast (principal); Z80.3 Family history of malignant neoplasm of breast; R92.323 Mammographic fibroglandular density, bilateral breasts
CPT/HCPCS: 77063; 77067

== ENCOUNTER → 2023-11-11 09:51 | Outpatient (CLI) | payer MEDICARE, OTHER, SELFPAY ==
[2023-11-11 11:19] LABS: Hematocrit 40.3 % (36-46); Hemoglobin 13.4 g/dL (12.0-16.0); Mean Corpuscular HGB Conc 33.4 % (30-36); Mean Corpuscular Hemoglobin 30.6 PG (26-34); Mean Corpuscular Volume 91.7 fL (80-100); Platelet Count 160 X10^3/uL (150-400); Red Blood Cell Count 4.39 X10^6/uL (4.0-5.2); Red Cell Distribution Width 13.1 % (11.6-14.8); White Blood Cell Count 4.9 X10^3/uL (4.5-11.0)
[2023-11-11 11:31] LABS: Hemoglobin A1C% w Est Avg Glu 5.5 % (4.0-6.0)
[2023-11-11 11:44] LABS: Alanine Aminotransferase 21 IU/L (<35); Albumin 4.5 g/dL (3.5-5.0); Albumin Globulin Ratio 1.6 (1.0-2.8); Alkaline Phosphatase 84 U/L (38-126); Aspartate Aminotransferase 28 IU/L (14-36); BUN Creatinine Ratio 25.7 (6-22); Bilirubin Total 0.8 mg/dL (0.2-1.3); Blood Urea Nitrogen 18 mg/dL (7-17); Calcium 9.2 mg/dL (8.4-10.2); Carbon Dioxide 27 mmol/L (22-32); Chloride 109 mmol/L (98-107); Cholesterol 244 mg/dL (140-199); Estimated Glomerular Filt Rate > 60 mL/min (>60); Globulin 2.9 g/dL (1.7-4.1); Glucose 95 mg/dL (80-110); HDL Cholesterol 60 mg/dL (40-60); LDL Cholesterol Calculated 164 mg/dL (<100); Potassium 4.5 mmol/L (3.4-5.1); Sodium 140 mmol/L (137-145); Total Protein 7.4 g/dL (6.3-8.2); Triglycerides 98 mg/dL (35-150)
[2023-11-11 11:45] LABS: HEMOLYSIS 59 (0-50)
[2023-11-11 12:16] LABS: TSH w/ Reflex to FT4 3.06 uIU/mL (0.47-4.68)
[2023-11-11 12:32] LABS: Vitamin B12 235 pg/mL (239-931)
== END ==
PROVIDERS: PCP Registered Nurse Diabetes Educator; Referring Provider Registered Nurse Diabetes Educator; Visit Provider Registered Nurse Diabetes Educator
DX: E78.5 Hyperlipidemia, unspecified (principal); G62.9 Polyneuropathy, unspecified; E03.9 Hypothyroidism, unspecified; R94.4 Abnormal results of kidney function studies; R20.2 Paresthesia of skin
CPT/HCPCS: 36415; 80053; 80061; 82607; 83036; 84443; 85027

== ENCOUNTER → 2024-01-17 09:13 | Outpatient (CLI) | payer MEDICARE, OTHER, SELFPAY ==
[2024-01-17 10:44] LABS: Hematocrit 40.1 % (36-46); Hemoglobin 13.5 g/dL (12.0-16.0); Mean Corpuscular HGB Conc 33.7 % (30-36); Mean Corpuscular Hemoglobin 30.8 PG (26-34); Mean Corpuscular Volume 91.4 fL (80-100); Platelet Count 177 X10^3/uL (150-400); Red Blood Cell Count 4.38 X10^6/uL (4.0-5.2); Red Cell Distribution Width 13.7 % (11.6-14.8); White Blood Cell Count 5.9 X10^3/uL (4.5-11.0)
[2024-01-17 12:03] LABS: Vitamin B12 401 pg/mL (239-931)
== END ==
PROVIDERS: PCP Registered Nurse Diabetes Educator; Referring Provider Registered Nurse Diabetes Educator; Visit Provider Registered Nurse Diabetes Educator
DX: E53.8 Deficiency of other specified B group vitamins (principal)
CPT/HCPCS: 36415; 82607; 85027

== ENCOUNTER → 2024-04-29 09:20 | Outpatient (CLI) | payer MEDICARE, OTHER, SELFPAY ==
[2024-04-29 11:40] LABS: Cholesterol 160 mg/dL (140-199); HDL Cholesterol 50 mg/dL (40-60); LDL Cholesterol Calculated 89 mg/dL (<100); Triglycerides 105 mg/dL (35-150)
[2024-04-29 12:34] LABS: Vitamin B12 612 pg/mL (239-931)
== END ==
PROVIDERS: PCP Registered Nurse Diabetes Educator; Referring Provider Registered Nurse Diabetes Educator; Visit Provider Registered Nurse Diabetes Educator
DX: E78.5 Hyperlipidemia, unspecified (principal); E53.8 Deficiency of other specified B group vitamins
CPT/HCPCS: 36415; 80061; 82607

== ENCOUNTER → 2024-08-21 09:06 | Outpatient (CLI) | payer MEDICARE, OTHER, SELFPAY ==
[2024-08-21 10:41] LABS: BUN Creatinine Ratio 23.8 (6-22); Blood Urea Nitrogen 20 mg/dL (7-17); Calcium 9.4 mg/dL (8.4-10.2); Carbon Dioxide 30 mmol/L (22-32); Chloride 103 mmol/L (98-107); Estimated Glomerular Filt Rate > 60 mL/min (>60); Glucose 61 mg/dL (80-110); HEMOLYSIS < 15 (0-50); Potassium 3.9 mmol/L (3.4-5.1); Sodium 141 mmol/L (137-145)
== END ==
PROVIDERS: PCP Registered Nurse Diabetes Educator; Referring Provider Registered Nurse Diabetes Educator; Visit Provider Registered Nurse Diabetes Educator
DX: I10 Essential (primary) hypertension (principal)
CPT/HCPCS: 36415; 80048

== ENCOUNTER → 2024-10-16 09:18 | Outpatient (CLI) | payer MEDICARE, OTHER, SELFPAY ==
--- NOTE | 2024-10-16 09:19 | DI.MG.S_ITS ---
MM screening mammo BI: 10/16/2024. BI-RADS: 1 CLINICAL: 79-year old female for bilateral screening mammogram. Tyrer-Cuzick lifetime risk of 2.0%. Current reported family history of breast cancer: mother. PRIOR EXAMS 08/21/2023, 04/07/2021, 03/05/2020, 02/27/2019. MAMMOGRAPHY TECHNIQUE: 2D and 3D (tomosynthesis) digital mammographic views obtained, with additional images as needed for full coverage. Current study was also evaluated with a Computer Aided Detection (CAD) system. DENSITY B. There are scattered areas of fibroglandular density. MAMMOGRAPHY FINDINGS Bilateral: No suspicious mass, asymmetry, microcalcification, or other abnormality seen. No significant change from comparison. IMPRESSION: * No evidence of malignancy. RECOMMENDATIONS Bilateral * Annual screening mammography. OVERALL ASSESSMENT CATEGORY BI-RADS-1: Negative. The [employer] recommends annual screening mammography beginning at age 40 for women with average risk of breast cancer. ELECTRONICALLY SIGNED: Madiha Rodriguez M.D. on 10/16/2024 at 10:22:56 AM PT Interpreting Station ID: [id number]
== END ==
PROVIDERS: PCP Registered Nurse Diabetes Educator; Referring Provider Registered Nurse Diabetes Educator; Visit Provider Registered Nurse Diabetes Educator
DX: Z12.31 Encounter for screening mammogram for malignant neoplasm of breast (principal); Z80.3 Family history of malignant neoplasm of breast
CPT/HCPCS: 77063; 77067

== ENCOUNTER → 2025-05-11 08:39 | Outpatient (CLI) | payer MEDICARE, OTHER, SELFPAY ==
[2025-05-11 10:03] LABS: Hematocrit 40.7 % (36-46); Hemoglobin 13.6 g/dL (12.0-16.0); Mean Corpuscular HGB Conc 33.5 % (30-36); Mean Corpuscular Hemoglobin 29.9 PG (26-34); Mean Corpuscular Volume 89.2 fL (80-100); Platelet Count 168 X10^3/uL (150-400)
[2025-05-11 10:32] LABS: Alanine Aminotransferase 18 IU/L (<35); Albumin 4.6 g/dL (3.5-5.0); Albumin Globulin Ratio 1.6 (1.0-2.8); Alkaline Phosphatase 94 U/L (38-126); Blood Urea Nitrogen 21 mg/dL (7-17); Calcium 9.1 mg/dL (8.4-10.2); Carbon Dioxide 28 mmol/L (22-32); Chloride 103 mmol/L (98-107); Cholesterol 184 mg/dL (140-199); Estimated Glomerular Filt Rate > 60 mL/min (>60); Globulin 2.9 g/dL (1.7-4.1); Glucose 96 mg/dL (70-99); HDL Cholesterol 65 mg/dL (40-60); HEMOLYSIS < 15 (0-50); Potassium 5.1 mmol/L (3.4-5.1); Sodium 139 mmol/L (137-145); Total Protein 7.5 g/dL (6.3-8.2); Triglycerides 110 mg/dL (35-150)
--- NOTE | 2025-05-11 10:36 | DI.RAD.S_ITS ---
PROCEDURE: XR DEXA AXIAL SKELETON INDICATIONS: re-eval osteopenia COMPARISON: [facility], CR, XR DEXA AXIAL SKELETON, 02/27/2019, 15:32. FINDINGS: Lumbar Spine: Bone mineral density 0.97 g/cm2, T score -0.7, previously -0.5. Left Femoral Neck: Bone mineral density 0.74 g/cm2, T score -1, previously -0.7. Left Hip: Bone mineral density 0.93 g/cm2, T score -0.1, previously 0.6. Fracture Risk Calculation (when applicable): Not applicable (T score greater or equal to -1.0 to: NORMAL) (T score from -1.1 to -2.4: OSTEOPENIA) (T score less than or equal to -2.5: OSTEOPOROSIS) IMPRESSION: Left femoral neck T-score is borderline osteopenic. T-scores have also declined compared to prior. Follow-up guidelines as follows: Osteoporosis: Consider a repeat DEXA and Vertebral Fracture Assessment (VFA) exam in 2 years or sooner if medically necessary, to reassess this patient's status. Osteopenia: Consider a repeat DEXA in 2-3 years to reassess this patient's status, or if there is a new clinical indication. Normal: Consider a repeat DEXA in 5 years or sooner, or if there is a new clinical indication. All treatment decisions require clinical judgment and consideration of individual patient factors, including patient preferences, comorbidities, previous drug use, risk factors not captured in the FRAX model (e.g., frailty, falls, vitamin D deficiency, increased bone turnover, interval significant decline in bone density ) and possible under- or over-estimation of fracture risk by FRAX. In addition, the NOF Guide recommends that FDA-approved medical therapies be considered in postmenopausal women and men age >= 50 years with a: * Hip or vertebral (clinical or morphometric) fracture * T-score of <=-2.5 at the spine or hip * Ten-year fracture probability by FRAX of >= 3% for hip fracture or >=20% for major osteoporotic fracture. Dictated by: Presley Lemus M.D. on 05/11/2025 at 12:40 Approved by: Presley Lemus M.D. on 05/11/2025 at 12:42
[2025-05-11 10:53] LABS: TSH w/ Reflex to FT4 3.85 uIU/mL (0.47-4.68)
[2025-05-11 11:12] LABS: Vitamin B12 731 pg/mL (239-931)
== END ==
LOC: RAD 08:40
PROVIDERS: PCP Registered Nurse Diabetes Educator; Referring Provider Registered Nurse Diabetes Educator; Visit Provider Registered Nurse Diabetes Educator
DX: M85.88 Other specified disorders of bone density and structure, other site (principal); N95.8 Other specified menopausal and perimenopausal disorders; I10 Essential (primary) hypertension; E03.9 Hypothyroidism, unspecified; E53.8 Deficiency of other specified B group vitamins; E78.5 Hyperlipidemia, unspecified
CPT/HCPCS: 36415; 77080; 80053; 80061; 82607; 84443; 85027